=== PATIENT | female | born 1930 | race Caucasian/White ===

== ENCOUNTER 2019-02-25 06:55 | Inpatient (IN) | payer MEDICARE, BC ==
[~2019-02-25] VITALS: Ht 154.9 cm; Wt 54.5 kg
[2019-02-25] VITALS (11 sets, daily range): BP systolic 131–195; BP diastolic 56–101
[~2019-02-25 06:55] MED LIST: ACET-812 PO; APIX5TAB3 PO; ATOR10TA87 PO; LOPE-144 PO; MELA5CAP PO; PANT-47 PO; SOTA80TA73 PO; SYN0.088T PO
[2019-02-25] MEDS ORDERED: normal saline 1000ml 1,000 ML IV ONE (07:26)
[2019-02-25] MEDS ORDERED: METO1TAB25 PO (07:42)
[2019-02-25 07:55] LABS: EOSINOPHILS # (AUTO) 0.1 X10'3 (0-0.9); EOSINOPHILS % (AUTO) 3.3 % (0-6); HEMOGLOBIN 11.8 g/dl (12.0-16.0); LYMPHOCYTES # (AUTO) 1.4 X10'3 (1.1-4.8); LYMPHOCYTES % (AUTO) 33.2 % (21-51); MEAN CORPUSCULAR HEMOGLOBIN 30.6 PG (27.0-31.0); MEAN CORPUSCULAR HGB CONC 33.7 g/dL (33.0-36.5); MONOCYTES # (AUTO) 0.5 X10'3 (0-0.9); MONOCYTES % (AUTO) 11.5 % (2-12); NEUTROPHILS # (AUTO) 2.2 X10'3 (1.8-7.7); PLATELET COUNT 128 X10'3 (140-440); RED BLOOD COUNT 3.85 X10'6 (4.20-5.60); RED CELL DISTRIBUTION WIDTH 14.4 % (11.5-14.5); WHITE BLOOD COUNT 4.3 X10'3 (4.5-11.0)
[2019-02-25 08:05] LABS: PARTIAL THROMBOPLASTIN TIME 30 SECONDS (22-32)
[2019-02-25 08:07] LABS: ALBUMIN/GLOBULIN RATIO 0.9 (1.1-1.5); ALKALINE PHOSPHATASE 98 IU/L (46-116); ASPARTATE AMINO TRANSFERASE 33 U/L (10-37); BILIRUBIN,TOTAL 0.8 MG/DL (0.1-1.0); BLOOD UREA NITROGEN 14 MG/DL (7-18); BUN/CREATININE RATIO 16.1 (6.6-38.0); CALCIUM 8.4 MG/DL (8.5-10.1); CREATININE 0.87 MG/DL (0.40-0.90); GLUCOSE 93 MG/DL (70-104); LIPASE 157 U/L (73-393); POTASSIUM 3.8 MMOL/L (3.5-5.1); TOTAL CARBON DIOXIDE 23.2 MMOL/L (24-32); TOTAL PROTEIN 6.4 G/DL (6.4-8.2); eGFR 61 ML/MIN
[2019-02-25 08:36] LABS: ALANINE AMINOTRANSFERASE 13 U/L (12-78); ANION GAP 9 (8-16); CHLORIDE 111 MMOL/L (99-107); SODIUM 143 MMOL/L (135-145)
[2019-02-25] MEDS ORDERED: pantoprazole 40 MG vial IV ONE (09:05)
[2019-02-25] MEDS ORDERED: ESOMEPRAZOLE 40 MG VIAL IV ONE (09:07)
[2019-02-25] MEDS ORDERED: mag hydrox/Alum hydrox/simeth 30ml oral suspension PO PRN (09:10)
[2019-02-25] MEDS ORDERED: acetaminophen 325mg tablet PO PRN ×2 (09:10→09:20)
[2019-02-25] MEDS ORDERED: morphine 2 MG/ML inj. syringe IV PRN ×2 (09:10)
[2019-02-25] MEDS ORDERED: magnesium hydroxide 30ml (MOM) UD suspension PO PRN (09:10)
[2019-02-25] MEDS ORDERED: LIDOcaine Viscous 15ml cup ONE (09:30)
[2019-02-25] MEDS ORDERED: MIDAZolam 5mg/5ml vial ONE (09:30)
[2019-02-25] MEDS ORDERED: fentaNYL/PF 50MCG/1 ML 2ML syringe ONE (09:30)
--- NOTE | 2019-02-25 09:44 | NUR ---
pt out to gi lab via ollie with gi rn
--- NOTE | 2019-02-25 11:02 | NUR ---
PT. BACK FROM GI LAB WITH GI RN VIA W/C
[2019-02-25] MEDS: dextrose 5%-1/2 normal saline 1,000 ML IV SCH ×3 (11:09→22:49)
--- NOTE | 2019-02-25 11:30 | NUR ---
I received report from Crystal ROMERO
[2019-02-25] MEDS ORDERED: PEG 3350/Na sulf,bicarb,Cl/KCl oral sol 4 liter bottle PO STA (13:00)
[2019-02-25 15:57] LABS: EOSINOPHILS # (AUTO) 0.1 X10'3 (0-0.9); EOSINOPHILS % (AUTO) 2.4 % (0-6); HEMATOCRIT 34.3 % (35.0-45.0); HEMOGLOBIN 11.4 g/dl (12.0-16.0); LYMPHOCYTES # (AUTO) 1.6 X10'3 (1.1-4.8); LYMPHOCYTES % (AUTO) 35.9 % (21-51); MEAN CORPUSCULAR HEMOGLOBIN 30.4 PG (27.0-31.0); MEAN CORPUSCULAR HGB CONC 33.1 g/dL (33.0-36.5); MEAN CORPUSCULAR VOLUME 91.8 FL (78-98); MEAN PLATELET VOLUME 9.1 FL (7.4-10.4); MONOCYTES # (AUTO) 0.4 X10'3 (0-0.9); MONOCYTES % (AUTO) 9.5 % (2-12); NEUTROPHILS # (AUTO) 2.3 X10'3 (1.8-7.7); NEUTROPHILS % (AUTO) 51.2 % (42-75); PLATELET COUNT 113 X10'3 (140-440); RED BLOOD COUNT 3.74 X10'6 (4.20-5.60); RED CELL DISTRIBUTION WIDTH 14.4 % (11.5-14.5); WHITE BLOOD COUNT 4.4 X10'3 (4.5-11.0)
--- NOTE | 2019-02-25 16:03 | NUR ---
I spoke to Dr. Lopez about patient loosing a lot of blood, I will let him konw if H&H drops and he is okay with patient BP being high it is 178/89 right now.
--- NOTE | 2019-02-25 16:57 | NUR ---
Patient BP 195/[address] Lopez
[2019-02-25] MEDS: ondansetron/PF 4mg/2ml inj IV PRN ×2 (17:28→23:00)
--- NOTE | 2019-02-25 18:31 | NUR ---
Patient report given to Beth ROMERO
[2019-02-25] MEDS ORDERED: non-formulary drug (Metoprolol/Hydrochlorothiazide 50/25 MG* (Lopressor Hct 50/25 MG*) 1 T PO SCH (20:00)
[2019-02-25] MEDS ORDERED: Melatonin 3mg tablet PO PRN (21:00)
[2019-02-25] MEDS: HYDROchlorothiazide 25mg tablet PO SCH (21:53)
[2019-02-25] MEDS: metoprolol tartrate 50mg tablet PO SCH (21:54)
[2019-02-25] MEDS: ESOMEPRAZOLE 40 MG VIAL IV SCH (22:26)
[2019-02-26] VITALS (9 sets, daily range): BP systolic 105–163; BP diastolic 60–95
[2019-02-26 01:20] LABS: BASOPHILS % (AUTO) 0.6 % (0-1); EOSINOPHILS # (AUTO) 0.1 X10'3 (0-0.9); EOSINOPHILS % (AUTO) 2.3 % (0-6); HEMATOCRIT 31.8 % (35.0-45.0); HEMOGLOBIN 10.8 g/dl (12.0-16.0); LYMPHOCYTES % (AUTO) 19.7 % (21-51); MEAN CORPUSCULAR HEMOGLOBIN 30.9 PG (27.0-31.0); MEAN CORPUSCULAR HGB CONC 34.1 g/dL (33.0-36.5); MEAN CORPUSCULAR VOLUME 90.7 FL (78-98); MEAN PLATELET VOLUME 9.1 FL (7.4-10.4); MONOCYTES # (AUTO) 0.4 X10'3 (0-0.9); NEUTROPHILS # (AUTO) 3.4 X10'3 (1.8-7.7); NEUTROPHILS % (AUTO) 68.4 % (42-75); PLATELET COUNT 109 X10'3 (140-440); RED BLOOD COUNT 3.51 X10'6 (4.20-5.60); RED CELL DISTRIBUTION WIDTH 14.2 % (11.5-14.5); WHITE BLOOD COUNT 4.9 X10'3 (4.5-11.0)
[2019-02-26] MEDS: ESOMEPRAZOLE 40 MG VIAL IV SCH ×2 (08:00→19:48)
[2019-02-26 08:36] LABS: ALBUMIN 2.8 G/DL (3.4-5.0); ANION GAP 7 (8-16); BLOOD UREA NITROGEN 8 MG/DL (7-18); BUN/CREATININE RATIO 8.3 (6.6-38.0); CALCIUM 8.3 MG/DL (8.5-10.1); CHLORIDE 112 MMOL/L (99-107); CREATININE 0.96 MG/DL (0.40-0.90); GLUCOSE 101 MG/DL (70-104); POTASSIUM 3.5 MMOL/L (3.5-5.1); SODIUM 145 MMOL/L (135-145); TOTAL CARBON DIOXIDE 26.1 MMOL/L (24-32); eGFR 55 ML/MIN
[2019-02-26 08:51] LABS: BASOPHILS % (AUTO) 0.5 % (0-1); EOSINOPHILS # (AUTO) 0.1 X10'3 (0-0.9); EOSINOPHILS % (AUTO) 2.1 % (0-6); HEMATOCRIT 31.2 % (35.0-45.0); HEMOGLOBIN 10.6 g/dl (12.0-16.0); LYMPHOCYTES # (AUTO) 1.2 X10'3 (1.1-4.8); LYMPHOCYTES % (AUTO) 28.8 % (21-51); MEAN CORPUSCULAR HGB CONC 34.1 g/dL (33.0-36.5); MEAN CORPUSCULAR VOLUME 90.8 FL (78-98); MEAN PLATELET VOLUME 9.1 FL (7.4-10.4); MONOCYTES # (AUTO) 0.3 X10'3 (0-0.9); MONOCYTES % (AUTO) 8.4 % (2-12); NEUTROPHILS # (AUTO) 2.5 X10'3 (1.8-7.7); NEUTROPHILS % (AUTO) 60.2 % (42-75); PLATELET COUNT 107 X10'3 (140-440); RED BLOOD COUNT 3.44 X10'6 (4.20-5.60); RED CELL DISTRIBUTION WIDTH 14.3 % (11.5-14.5); WHITE BLOOD COUNT 4.1 X10'3 (4.5-11.0)
--- NOTE | 2019-02-26 11:42 | NUR ---
Gi laborer landscape in with patient.
[2019-02-26] MEDS: atorvastatin 10mg tablet PO SCH (12:08)
[2019-02-26] MEDS: metoprolol tartrate 50mg tablet PO SCH ×2 (12:08→19:46)
[2019-02-26] MEDS: levoTHYROXINE 88mcg tablet PO SCH (12:08)
[2019-02-26] MEDS: HYDROchlorothiazide 25mg tablet PO SCH ×2 (12:09→19:46)
[2019-02-26] MEDS: dextrose 5%-1/2 normal saline 1,000 ML IV SCH (12:09)
[2019-02-26] MEDS ORDERED: MIDAZolam 5mg/5ml vial ONE (13:44)
[2019-02-26] MEDS ORDERED: fentaNYL/PF 50MCG/1 ML 2ML syringe ONE (13:44)
--- NOTE | 2019-02-26 16:57 | NUR ---
Page to Dr. Lopez MESSAGE: [id number] Silvia, Madelyn do you want to start patient back on her Eliquis Adelita [phone]
--- NOTE | 2019-02-26 18:15 | NUR ---
Received report from Adelita ROMERO, assumed care of patient.
--- NOTE | 2019-02-26 18:18 | NUR ---
Report to Richelle Ortega RN
[2019-02-27] MEDS: dextrose 5%-1/2 normal saline 1,000 ML IV SCH (00:51)
--- NOTE | 2019-02-27 05:55 | NUR ---
Student documentation: I have reviewed and agree with all interventions, assessments performed and documented by Angeles Hawley Medication Administration: For this medication-pass time frame, all medication were reviewed, dispensed, administered and documented per hospital policy by Angeles Singh
--- NOTE | 2019-02-27 06:35 | NUR ---
Report given to Kiersten ROMERO.
[2019-02-27 06:56] LABS: ALBUMIN 2.7 G/DL (3.4-5.0); ANION GAP 9 (8-16); BLOOD UREA NITROGEN 13 MG/DL (7-18); BUN/CREATININE RATIO 10.4 (6.6-38.0); CALCIUM 8.5 MG/DL (8.5-10.1); CHLORIDE 107 MMOL/L (99-107); CREATININE 1.25 MG/DL (0.40-0.90); GLUCOSE 108 MG/DL (70-104); POTASSIUM 3.5 MMOL/L (3.5-5.1); SODIUM 139 MMOL/L (135-145); TOTAL CARBON DIOXIDE 23.5 MMOL/L (24-32); eGFR 40 ML/MIN
[2019-02-27 06:57] LABS: BASOPHILS % (AUTO) 0.6 % (0-1); EOSINOPHILS # (AUTO) 0.1 X10'3 (0-0.9); EOSINOPHILS % (AUTO) 2.1 % (0-6); HEMATOCRIT 30.1 % (35.0-45.0); HEMOGLOBIN 10.4 g/dl (12.0-16.0); LYMPHOCYTES % (AUTO) 19.9 % (21-51); MEAN CORPUSCULAR HEMOGLOBIN 31.3 PG (27.0-31.0); MEAN CORPUSCULAR HGB CONC 34.5 g/dL (33.0-36.5); MEAN CORPUSCULAR VOLUME 90.6 FL (78-98); MONOCYTES # (AUTO) 0.5 X10'3 (0-0.9); MONOCYTES % (AUTO) 9.9 % (2-12); NEUTROPHILS # (AUTO) 3.5 X10'3 (1.8-7.7); NEUTROPHILS % (AUTO) 67.5 % (42-75); PLATELET COUNT 104 X10'3 (140-440); RED BLOOD COUNT 3.33 X10'6 (4.20-5.60); RED CELL DISTRIBUTION WIDTH 14.3 % (11.5-14.5); WHITE BLOOD COUNT 5.3 X10'3 (4.5-11.0)
--- NOTE | 2019-02-27 06:57 | NUR ---
Received report from Richelle ROMERO
[2019-02-27 07:27] VITALS: BP 172/79
[2019-02-27 07:32] VITALS: BP_SYST 172; BP_SYST 180; BP_SYST 186; BP_DIAS 79; BP_DIAS 86; BP_DIAS 87
[2019-02-27] MEDS: ESOMEPRAZOLE 40 MG VIAL IV SCH (08:00)
[2019-02-27] MEDS ORDERED: apixaban 2.5mg tablet PO SCH (08:00)
[2019-02-27] MEDS: atorvastatin 10mg tablet PO SCH (09:36)
[2019-02-27] MEDS: levoTHYROXINE 88mcg tablet PO SCH (09:36)
[2019-02-27 09:37] VITALS: BP_SYST 172
[2019-02-27] MEDS: HYDROchlorothiazide 25mg tablet PO SCH (09:37)
[2019-02-27] MEDS: metoprolol tartrate 50mg tablet PO SCH (09:37)
[2019-03-01 10:16] LABS: OCCULT BLOOD STOOL POSITIVE (Neg)
== END 2019-02-27 10:05 | disposition home or self-care (01) | DRG 378 ==
LOC: ER 06:56 → ORTHO 4S 11:22 → CMPBEDREQ 02-26 19:59
PROVIDERS: ADMIT Internal Medicine; ATTEND Internal Medicine
PROC: 0W3P8ZZ Control Bleeding in Gastrointestinal Tract, Via Natural or Artificial Opening Endoscopic (ICD-10-PCS; principal; 2019-02-25)
PROC: 0DJD8ZZ Inspection of Lower Intestinal Tract, Via Natural or Artificial Opening Endoscopic (ICD-10-PCS; 2019-02-26)
DX: K55.21 Angiodysplasia of colon with hemorrhage (principal); D62 Acute posthemorrhagic anemia; D64.9 Anemia, unspecified; E03.9 Hypothyroidism, unspecified; E78.5 Hyperlipidemia, unspecified; I10 Essential (primary) hypertension; I48.0 Paroxysmal atrial fibrillation; K21.9 Gastro-esophageal reflux disease without esophagitis; K57.30 Diverticulosis of large intestine without perforation or abscess without bleeding; G47.00 Insomnia, unspecified; K64.8 Other hemorrhoids; Z79.899 Other long term (current) drug therapy; Z85.038 Personal history of other malignant neoplasm of large intestine; Z90.710 Acquired absence of both cervix and uterus; Z88.6 Allergy status to analgesic agent; Z83.3 Family history of diabetes mellitus; Z82.49 Family history of ischemic heart disease and other diseases of the circulatory system; Z80.9 Family history of malignant neoplasm, unspecified
CPT/HCPCS: 36415; 80048; 80053; 82272; 83690; 85025; 85610; 85730; 86885; 86900; 86901; 87070; 93005; 96360; 96372; 99152; 99285; A4620; G0378; J2250; J2405; J3010; J7030

== ENCOUNTER 2019-06-20 19:27 | Inpatient (IN) | payer MEDICARE, BC ==
[~2019-06-20] VITALS: Ht 154.9 cm; Wt 54.5 kg
[~2019-06-20 19:27] MED LIST changes: -APIX5TAB3 PO; -LOPE-144 PO; +METO1TAB25 PO; -PANT-47 PO; -SOTA80TA73 PO
[2019-06-20] MEDS ORDERED: normal saline 1000ML IV soln IV ONE (19:50)
[2019-06-20 20:15] LABS: BASOPHILS % (AUTO) 0.9 % (0-1); EOSINOPHILS # (AUTO) 0.1 X10'3 (0-0.9); EOSINOPHILS % (AUTO) 2.6 % (0-6); LYMPHOCYTES # (AUTO) 1.3 X10'3 (1.1-4.8); MEAN CORPUSCULAR HEMOGLOBIN 26.7 PG (27.0-31.0); MEAN CORPUSCULAR HGB CONC 32.5 g/dL (33.0-36.5); MEAN CORPUSCULAR VOLUME 82.3 FL (78-98); MEAN PLATELET VOLUME 9.3 FL (7.4-10.4); MONOCYTES # (AUTO) 0.4 X10'3 (0-0.9); MONOCYTES % (AUTO) 10.5 % (2-12); NEUTROPHILS # (AUTO) 2.2 X10'3 (1.8-7.7); RED CELL DISTRIBUTION WIDTH 18.5 % (11.5-14.5); WHITE BLOOD COUNT 4.2 X10'3 (4.5-11.0)
[2019-06-20 20:28] LABS: PARTIAL THROMBOPLASTIN TIME 30 SECONDS (22-32)
[2019-06-20 20:31] LABS: ALANINE AMINOTRANSFERASE 15 U/L (12-78); ALBUMIN 3.7 G/DL (3.4-5.0); ALBUMIN/GLOBULIN RATIO 0.9 (1.1-1.5); ALKALINE PHOSPHATASE 131 IU/L (46-116); ANION GAP 11 (8-16); ASPARTATE AMINO TRANSFERASE 21 U/L (10-37); BILIRUBIN,TOTAL 0.8 MG/DL (0.1-1.0); BLOOD UREA NITROGEN 12 MG/DL (7-18); BUN/CREATININE RATIO 11.9 (6.6-38.0); CALCIUM 8.5 MG/DL (8.5-10.1); CHLORIDE 110 MMOL/L (99-107); CREATININE 1.01 MG/DL (0.40-0.90); GLUCOSE 102 MG/DL (70-104); POTASSIUM 3.8 MMOL/L (3.5-5.1); SODIUM 145 MMOL/L (135-145); TOTAL CARBON DIOXIDE 24.1 MMOL/L (24-32); TOTAL PROTEIN 7.8 G/DL (6.4-8.2); eGFR 52 ML/MIN
[2019-06-20 20:32] LABS: PLATELET COUNT 93 X10'3 (140-440)
--- NOTE | 2019-06-20 20:32 | NUR ---
AT BEDSIDE - PT GIVEN ADDITIONAL BLANKET. DENIES NEEDS AT THIS TIME. PAIN 0/10
[2019-06-20] MEDS ORDERED: APIX2.5T PO (21:14)
[2019-06-20] MEDS ORDERED: MONT10TA24 PO (21:14)
[2019-06-20] MEDS ORDERED: METO50TA16 PO (21:14)
--- NOTE | 2019-06-20 23:39 | NUR ---
PT HAS HAD 6 EPISODES OF BLOODY STOOL WHILE IN ER. PT CLEANED EACH TIME AND PLACED NEW BRIEF. BARRIER CREAM PLACED. PT GIVEN CALL [facility] TO NOTIFY WHEN SHE NEEDS TO BE CHANGED
[2019-06-20 23:50] LABS: CLARITY,URINE CLEAR (Clear); COLOR,URINE STRAW (Yellow); GLUCOSE, URINE NEGATIVE (Neg); KETONES,URINE NEGATIVE (Neg); LEUKOCYTE ESTERASE ,URINE SMALL (Neg); NITRITES, URINE NEGATIVE (Neg); OCCULT BLOOD,URINE SMALL (Neg); PROTEIN,URINE NEGATIVE (Neg); UROBILINOGEN,URINE 0.2 E.U/dL (0.2-1.0)
[2019-06-20 23:51] LABS: UA COLLECTION TYPE STRAIGHT CATH
[2019-06-20 23:57] LABS: BACTERIA,URINE NONE SEEN /HPF (Neg); MUCUS STRANDS NONE SEEN /LPF (Neg); RBC,URINE 0-2 /HPF (0-2); SQUAMOUS EPITHELIAL CELL,UR NONE SEEN /LPF (FEW); TRANSITIONAL EPI CELLS,URINE MANY /HPF
[2019-06-20 23:58] LABS: RENAL CELLS, URINE FEW /HPF
--- NOTE | 2019-06-21 00:25 | NUR ---
PT RESTING COMFORTABLY. RR EVEN AND UNLABORED, WILL CONTINUE TO MONITOR
[2019-06-21] MEDS ORDERED: acetaminophen 325mg tablet PO PRN ×2 (00:30→00:35)
[2019-06-21] MEDS ORDERED: ondansetron/PF 4mg/2ml inj IV PRN (00:30)
[2019-06-21] MEDS ORDERED: mag hydrox/Alum hydrox/simeth 30ml oral suspension PO PRN (00:30)
[2019-06-21] MEDS ORDERED: magnesium hydroxide 30ml (MOM) UD suspension PO PRN (00:30)
[2019-06-21] MEDS: normal saline 1000ml 1,000 ML IV SCH (00:52)
--- NOTE | 2019-06-21 02:04 | NUR ---
PT REPORTED SHE HAD SEVERAL BOWEL MOVEMENTS BUT "WAS TOO EMBARASSED TO SAY ANYTHING". PT EDUCATED ON THE NECESSITY OF IMMEDIATE SKIN CARE TO PREVENT BREAKDOWN. PT STATED SHE WOULD CALL NEXT TIME SHE HAS A BM RIGHT AWAY. PT CLEANED, PLACED NEW BREIF ON, NEW CHUCKS, AND BARRIER CREAM. PT GIVEN 2 WARM BLANKETS AND CALL [facility]
--- NOTE | 2019-06-21 03:58 | NUR ---
PT STATES "3 EPISODES OF BM". BM BRIGHT RED AND GETTING CLOTTED NOW. HER ELIANA AREA IS TENDER. CONTINUE TO PLACE BARRIER CREAM ALL OVER THE AREA. ENCOURAGED HER TO LET US KNOW WHEN SHE HAS A BM SO THAT WE CAN CHANGE HER IMMEDIATELY. SHE CONTINUES TO BE RELUCTANT. WHEN SHE WAS AT THE BS SITTING IN THE CHAIR, SHE STOOD. SHE WAS UNSTEADY AND WAS SOB. PLACED INTO BED AND CHANGED AND OXYGEN 2 LNC STARTED. A HOSPITAL BED WAS PLACED IN THE ROOM AND SHE SCOOTED OVER TO IT AND BECAME SOB WITH THIS. SHE IS NOW TUCKED INTO BED AND VERY COMFORTABLE. CALL LIGHT ON SIDE RAIL AND LIGHTS DIMMED.
--- NOTE | 2019-06-21 04:30 | NUR ---
PT HAD BM, CLEANED, BARRIER CREAM PLACED. BM AGAIN CLOTTING MORE THAN WHEN FIRST HERE. PT TUCKED BACK INTO BED AND RESTING COMFORTABLY
[2019-06-21] MEDS: atorvastatin 10mg tablet PO SCH (07:50)
[2019-06-21] MEDS: levoTHYROXINE 88mcg tablet PO SCH (07:50)
[2019-06-21] MEDS: metoprolol tartrate 50mg tablet PO SCH ×2 (07:51→20:53)
[2019-06-21] MEDS: montelukast 10mg tablet PO SCH (07:59)
[2019-06-21] MEDS ORDERED: BARIUM SULFATE 1,900 ML ORAL.SUSP ONE (08:00)
[2019-06-21] MEDS ORDERED: hydrALAZINE 20mg/ml inj. IV PRN (08:05)
--- NOTE | 2019-06-21 08:30 | NUR ---
Pt cleaned from large bloody bowel movement with dark clots noted.
--- NOTE | 2019-06-21 09:30 | NUR ---
LARGE AMT OF BLOODY STOOL CLEANED UP. PT STATES SHE IS EMBARRASSED AND DOES NOT WANT TO BOTHER ANYONE. ENCOURAGED PT TO CALL US ANYTIME SHE HAS A BM. PT AGREES
--- NOTE | 2019-06-21 10:57 | NUR ---
Break RN:patient on bed awake,vital signs updated.
--- NOTE | 2019-06-21 11:11 | NUR ---
PT CLEANED UP FROM LARGE BLOODY BM. LARGE AMTS OF CLOTS AND STOOL AND BROWN STOOL THIS TIME. PT STATES THIS HAPPENS AND SHE HAS BLOOD FOR ABOUT 2 DAYS AND THEN IT CLEARS UO. PT DENIES PAIN VSS. BARRIER CREAM APPLIED. NO OTHER NEEDS AT THIS TIME
--- NOTE | 2019-06-21 12:46 | NUR ---
relieving RN for lunch, pt is sleeping, easily arouseable, resp even and unlabored, waiting for bed assignment, pt is on hospital bed
--- NOTE | 2019-06-21 14:08 | NUR ---
Attempted to phone report. Receiving RN is at lunch. Charge nurse to phone back to the ED within 5 minutes to receive report.
[2019-06-21 15:20] VITALS: BP 129/76
--- NOTE | 2019-06-21 15:42 | NUR ---
Patient to room 348 B from the ED. Received report from charge nurse who got report from the ED nurse. VSS. BLL. Call light in reach.
--- NOTE | 2019-06-21 18:10 | NUR ---
Patient in room [facility] 348. I have received report from Josy ROMERO and had the opportunity to ask questions and assume patient care.
--- NOTE | 2019-06-21 18:29 | NUR ---
Problems reprioritized. Patient report given, questions answered & plan of care reviewed with NICK Obrien.
[2019-06-21 20:00] VITALS: BP 157/93
[2019-06-21] MEDS: diatr meglu/diatrizoate 30ml oral sol.-(3 dose) bottle PO SCH (20:52)
[2019-06-22] VITALS (8 sets, daily range): BP systolic 137–201; BP diastolic 70–98
[2019-06-22] MEDS: normal saline 1000ml 1,000 ML IV SCH (01:28)
--- NOTE | 2019-06-22 06:33 | NUR ---
Problems reprioritized. Patient report given, questions answered & plan of care reviewed with Iris ROMERO.
--- NOTE | 2019-06-22 06:48 | NUR ---
Patient in room [facility] 348. I have received report from Micah ROMERO and had the opportunity to ask questions and assume patient care.
[2019-06-22] MEDS: metoprolol tartrate 50mg tablet PO SCH ×2 (07:22→19:35)
[2019-06-22] MEDS: diatr meglu/diatrizoate 30ml oral sol.-(3 dose) bottle PO SCH ×2 (07:25→10:15)
[2019-06-22 07:46] LABS: BASOPHILS % (AUTO) 0.8 % (0-1); EOSINOPHILS # (AUTO) 0.1 X10'3 (0-0.9); EOSINOPHILS % (AUTO) 2.9 % (0-6); HEMATOCRIT 28.1 % (35.0-45.0); HEMOGLOBIN 9.2 g/dl (12.0-16.0); LYMPHOCYTES # (AUTO) 1.3 X10'3 (1.1-4.8); LYMPHOCYTES % (AUTO) 34.9 % (21-51); MEAN CORPUSCULAR HEMOGLOBIN 26.9 PG (27.0-31.0); MEAN CORPUSCULAR HGB CONC 32.8 g/dL (33.0-36.5); MEAN PLATELET VOLUME 9.4 FL (7.4-10.4); MONOCYTES # (AUTO) 0.4 X10'3 (0-0.9); MONOCYTES % (AUTO) 10.6 % (2-12); NEUTROPHILS # (AUTO) 1.9 X10'3 (1.8-7.7); NEUTROPHILS % (AUTO) 50.8 % (42-75); PLATELET COUNT 82 X10'3 (140-440); RED BLOOD COUNT 3.43 X10'6 (4.20-5.60); RED CELL DISTRIBUTION WIDTH 18.8 % (11.5-14.5); WHITE BLOOD COUNT 3.7 X10'3 (4.5-11.0)
[2019-06-22 09:54] LABS: ALANINE AMINOTRANSFERASE 12 U/L (12-78); ALBUMIN 2.9 G/DL (3.4-5.0); ALBUMIN/GLOBULIN RATIO 0.9 (1.1-1.5); ALKALINE PHOSPHATASE 97 IU/L (46-116); ANION GAP 7 (8-16); ASPARTATE AMINO TRANSFERASE 15 U/L (10-37); BILIRUBIN,TOTAL 0.7 MG/DL (0.1-1.0); BLOOD UREA NITROGEN 6 MG/DL (7-18); BUN/CREATININE RATIO 6.3 (6.6-38.0); CALCIUM 8.2 MG/DL (8.5-10.1); CHLORIDE 114 MMOL/L (99-107); CREATININE 0.96 MG/DL (0.40-0.90); GLUCOSE 92 MG/DL (70-104); POTASSIUM 3.8 MMOL/L (3.5-5.1); SODIUM 145 MMOL/L (135-145); TOTAL CARBON DIOXIDE 24.2 MMOL/L (24-32); TOTAL PROTEIN 6.1 G/DL (6.4-8.2); eGFR 55 ML/MIN
--- NOTE | 2019-06-22 10:00 | NUR ---
Pt is going to CT for a CT scan with oral & rectal contrast. She is NPO since midnight. She has some oral meds that I was waiting for CT to call me back to verify that it was OK for her to have her PO meds with some water. CT said it was OK to give her meds and we will proceed from there. Her Antibiotic will be administer after she gets back. from ct schedule at 10:30.
[2019-06-22] MEDS: montelukast 10mg tablet PO SCH (10:15)
[2019-06-22] MEDS: atorvastatin 10mg tablet PO SCH (10:15)
[2019-06-22] MEDS: levoTHYROXINE 88mcg tablet PO SCH (10:15)
[2019-06-22] MEDS ORDERED: diatrozoate meglu/diatrozoate sod (37% iodine) 120ML oral solution ONE (10:27)
[2019-06-22] MEDS ORDERED: iohexol 300mg/ml 100ml inj. ONE (10:27)
[2019-06-22] MEDS ORDERED: fentaNYL/PF 50MCG/1 ML 2ML syringe ONE (13:13)
[2019-06-22] MEDS ORDERED: MIDAZolam 5mg/5ml vial ONE (13:13)
[2019-06-22] MEDS ORDERED: LIDOcaine Viscous 15ml cup ONE (13:13)
--- NOTE | 2019-06-22 18:15 | NUR ---
Patient in room [facility] 348. I have received report from Iris ROMERO and had the opportunity to ask questions and assume patient care.
[2019-06-23] VITALS: BP 165/64
[2019-06-23] MEDS: normal saline 1000ml 1,000 ML IV SCH (04:12)
--- NOTE | 2019-06-23 06:22 | NUR ---
Problems reprioritized. Patient report given, questions answered & plan of care reviewed with Iris ROMERO.
[2019-06-23 06:25] LABS: BASOPHILS % (AUTO) 0.7 % (0-1); EOSINOPHILS # (AUTO) 0.1 X10'3 (0-0.9); EOSINOPHILS % (AUTO) 2.1 % (0-6); HEMOGLOBIN 8.7 g/dl (12.0-16.0); LYMPHOCYTES % (AUTO) 24.1 % (21-51); MEAN CORPUSCULAR HEMOGLOBIN 27.4 PG (27.0-31.0); MEAN CORPUSCULAR HGB CONC 33.4 g/dL (33.0-36.5); MEAN CORPUSCULAR VOLUME 82.1 FL (78-98); MEAN PLATELET VOLUME 9.2 FL (7.4-10.4); MONOCYTES # (AUTO) 0.4 X10'3 (0-0.9); MONOCYTES % (AUTO) 10.3 % (2-12); NEUTROPHILS # (AUTO) 2.7 X10'3 (1.8-7.7); NEUTROPHILS % (AUTO) 62.8 % (42-75); PLATELET COUNT 79 X10'3 (140-440); RED BLOOD COUNT 3.16 X10'6 (4.20-5.60); RED CELL DISTRIBUTION WIDTH 18.8 % (11.5-14.5); WHITE BLOOD COUNT 4.3 X10'3 (4.5-11.0)
--- NOTE | 2019-06-23 06:54 | NUR ---
Patient in room [facility] 348. I have received report from Micah ROMERO and had the opportunity to ask questions and assume patient care.
[2019-06-23 07:00] VITALS: BP 168/73
[2019-06-23] MEDS: levoTHYROXINE 88mcg tablet PO SCH (07:22)
[2019-06-23] MEDS: montelukast 10mg tablet PO SCH (07:22)
[2019-06-23] MEDS: atorvastatin 10mg tablet PO SCH (07:22)
[2019-06-23] MEDS: metoprolol tartrate 50mg tablet PO SCH ×2 (07:23→19:03)
[2019-06-23 07:29] LABS: ALANINE AMINOTRANSFERASE 13 U/L (12-78); ALBUMIN 2.7 G/DL (3.4-5.0); ALBUMIN/GLOBULIN RATIO 0.9 (1.1-1.5); ALKALINE PHOSPHATASE 95 IU/L (46-116); ANION GAP 9 (8-16); ASPARTATE AMINO TRANSFERASE 14 U/L (10-37); BILIRUBIN,TOTAL 0.8 MG/DL (0.1-1.0); BLOOD UREA NITROGEN 4 MG/DL (7-18); BUN/CREATININE RATIO 4.6 (6.6-38.0); CALCIUM 7.9 MG/DL (8.5-10.1); CHLORIDE 111 MMOL/L (99-107); CREATININE 0.87 MG/DL (0.40-0.90); GLUCOSE 89 MG/DL (70-104); POTASSIUM 3.5 MMOL/L (3.5-5.1); SODIUM 145 MMOL/L (135-145); TOTAL CARBON DIOXIDE 24.9 MMOL/L (24-32); TOTAL PROTEIN 5.8 G/DL (6.4-8.2); eGFR 61 ML/MIN
[2019-06-23 09:08] LABS: ANISOCYTOSIS 2+; ELLIPTOCYTES FEW; HYPOCHROMASIA 1+; PLATELET ESTIMATE DECREASED; SCHISTOCYTES FEW
[2019-06-23 11:00] VITALS: BP 149/63
--- NOTE | 2019-06-23 18:50 | NUR ---
Patient in room [facility] 348. I have received report from NICK Simmons and had the opportunity to ask questions and assume patient care.
[2019-06-23 19:00] VITALS: BP 186/81
[2019-06-24] VITALS: BP 150/66
[2019-06-24] MEDS: normal saline 1000ml 1,000 ML IV SCH ×2 (03:28→14:39)
[2019-06-24 05:50] LABS: ALANINE AMINOTRANSFERASE 13 U/L (12-78); ALBUMIN 2.6 G/DL (3.4-5.0); ALBUMIN/GLOBULIN RATIO 0.8 (1.1-1.5); ALKALINE PHOSPHATASE 100 IU/L (46-116); ANION GAP 7 (8-16); ASPARTATE AMINO TRANSFERASE 14 U/L (10-37); BILIRUBIN,TOTAL 0.8 MG/DL (0.1-1.0); BLOOD UREA NITROGEN 3 MG/DL (7-18); BUN/CREATININE RATIO 3.3 (6.6-38.0); CALCIUM 8.1 MG/DL (8.5-10.1); CHLORIDE 112 MMOL/L (99-107); GLUCOSE 93 MG/DL (70-104); POTASSIUM 3.4 MMOL/L (3.5-5.1); SODIUM 146 MMOL/L (135-145); TOTAL CARBON DIOXIDE 27.5 MMOL/L (24-32); TOTAL PROTEIN 5.8 G/DL (6.4-8.2); eGFR 59 ML/MIN
[2019-06-24 05:59] LABS: BASOPHILS % (AUTO) 0.9 % (0-1); EOSINOPHILS # (AUTO) 0.1 X10'3 (0-0.9); EOSINOPHILS % (AUTO) 2.4 % (0-6); HEMATOCRIT 25.9 % (35.0-45.0); HEMOGLOBIN 8.6 g/dl (12.0-16.0); LYMPHOCYTES # (AUTO) 1.2 X10'3 (1.1-4.8); LYMPHOCYTES % (AUTO) 29.4 % (21-51); MEAN CORPUSCULAR HEMOGLOBIN 27.2 PG (27.0-31.0); MEAN CORPUSCULAR HGB CONC 33.1 g/dL (33.0-36.5); MEAN CORPUSCULAR VOLUME 82.1 FL (78-98); MEAN PLATELET VOLUME 9.3 FL (7.4-10.4); MONOCYTES # (AUTO) 0.5 X10'3 (0-0.9); MONOCYTES % (AUTO) 11.5 % (2-12); NEUTROPHILS # (AUTO) 2.2 X10'3 (1.8-7.7); NEUTROPHILS % (AUTO) 55.8 % (42-75); PLATELET COUNT 78 X10'3 (140-440); RED BLOOD COUNT 3.16 X10'6 (4.20-5.60); RED CELL DISTRIBUTION WIDTH 18.7 % (11.5-14.5); WHITE BLOOD COUNT 3.9 X10'3 (4.5-11.0)
--- NOTE | 2019-06-24 06:13 | NUR ---
Problems reprioritized. Patient report given, questions answered & plan of care reviewed with NICK Simmons.
--- NOTE | 2019-06-24 06:47 | NUR ---
Patient in room [facility] 352. I have received report from Mic ROMERO and had the opportunity to ask questions and assume patient care.
[2019-06-24] MEDS: montelukast 10mg tablet PO SCH (07:33)
[2019-06-24 07:34] VITALS: BP_SYST 141
[2019-06-24] MEDS: metoprolol tartrate 50mg tablet PO SCH (07:34)
[2019-06-24] MEDS: levoTHYROXINE 88mcg tablet PO SCH (07:34)
[2019-06-24] MEDS: atorvastatin 10mg tablet PO SCH (07:34)
--- NOTE | 2019-06-24 15:38 | NUR ---
Initial: Pt admit w/ LGIB; diverticulosis present per MD note. Pt complains of trouble swallowing per MD note. RD recommended SP BSS given dysphagia potential. Pt currently NPO was PO 100% clears previously. LB 06/23. Will monitor for SP BSS recs and diet advancement. Rec: 1. advance diet per MD/SP to low-residue 2. monitor for ONS needs pending diet advancement 3. wt per rx Addendum: 06/24/19 at [address] Amended: Links added.
--- NOTE | 2019-06-24 17:34 | NUR ---
Pt discharged to home. Pt picked up by & daughter, IV removed Intact. Pt A & O, in no pain/apparent distress. Pt's belongings packed and taken by daughter and . Pt very happy to go home. Pt wheeled to front of the hospital by staff member where daughter had her personal car.
== END 2019-06-24 17:34 | disposition home health service (06) | DRG 378 ==
LOC: ER 19:27 → ED HOLD 06-21 00:37 → EDBEDREQ 06-21 13:50 → SUR 3N 06-21 15:13
PROVIDERS: ADMIT Internal Medicine; ATTEND Family Medicine
PROC: 0DJ08ZZ Inspection of Upper Intestinal Tract, Via Natural or Artificial Opening Endoscopic (ICD-10-PCS; principal; 2019-06-22)
PROC: BW211ZZ Computerized Tomography (CT Scan) of Abdomen and Pelvis using Low Osmolar Contrast (ICD-10-PCS; 2019-06-22)
DX: K57.31 Diverticulosis of large intestine without perforation or abscess with bleeding (principal); D62 Acute posthemorrhagic anemia; I48.20 Chronic atrial fibrillation, unspecified; K92.1 Melena; E03.9 Hypothyroidism, unspecified; I10 Essential (primary) hypertension; E78.5 Hyperlipidemia, unspecified; K21.9 Gastro-esophageal reflux disease without esophagitis; K64.8 Other hemorrhoids; R13.10 Dysphagia, unspecified; Z85.048 Personal history of other malignant neoplasm of rectum, rectosigmoid junction, and anus; Z86.73 Personal history of transient ischemic attack (TIA), and cerebral infarction without residual deficits; Z88.6 Allergy status to analgesic agent; Z90.710 Acquired absence of both cervix and uterus; Z92.3 Personal history of irradiation; Z83.3 Family history of diabetes mellitus; Z80.9 Family history of malignant neoplasm, unspecified
CPT/HCPCS: 36415; 43235; 71045; 74018; 74176; 74177; 74270; 80053; 81001; 84443; 85025; 85610; 85730; 86885; 86900; 86901; 87081; 87088; 87324; 87449; 93005; 96360; 99152; 99285; A4620; G0378; J0360; J2250; J3010; J7030; J7040; Q9963; Q9967